=== PATIENT | male | born 1965 | race Caucasian/White ===

== ENCOUNTER 2016-10-30 21:17 | Emergency (ER) | payer OTHER ==
[~2016-10-30 21:17] MED LIST: ECO81 PO; FOL1 PO; PRI20 PO; THI100 PO; ZOC10 PO
[2016-10-30 22:37] VITALS: BP 108/77
== END 2016-10-30 22:37 | disposition home or self-care (01) ==
LOC: ED 21:17
DX: F10.129 Alcohol abuse with intoxication, unspecified (principal)

== ENCOUNTER 2016-11-01 22:55 | Inpatient (IN) | payer OTHER ==
[~2016-11-01] VITALS: Ht 167.6 cm; Wt 66.4 kg
[2016-11-01 23:26] LABS: BASOPHIL % 0.3 % (0-2); RED CELL DISTRIBUTION WIDTH 14.4 % (11.5-14.5)
[2016-11-01 23:35] LABS: CALCIUM 7.5 mg/dL (8.5-10.1); CARBON DIOXIDE 30.4 mmol/L (21-32); CHLORIDE SERUM 107 mmol/L (98-107); CREATININE SERUM 0.9 mg/dL (0.7-1.3); GFR1 > 60 mL/min; GLUCOSE SERUM 121 mg/dL (74-106); PLATELET COUNT 120 x10^3mcL (130-400); POTASSIUM SERUM 3.4 mmol/L (3.5-5.1); SODIUM SERUM 145 mmol/L (136-145)
[2016-11-01 23:40] LABS: ALKALINE PHOSPHATASE 120 U/L (46-116); ALT/SGPT 48 U/L (16-63); AMYLASE 37 U/L (25-115); AST/SGOT 48 U/L (15-37); BILIRUBIN TOTAL 0.2 mg/dL (0.20-1.00); LIPASE 480 IU/L (73-393)
[2016-11-01 23:41] LABS: ALBUMIN 3.2 g/dL (3.4-5.0); TOTAL PROTEIN, SERUM 6.1 g/dL (6.4-8.2)
[2016-11-02] VITALS (7 sets, daily range): BP systolic 100–121; BP diastolic 56–72
[2016-11-02 01:14] LABS: T3 TOTAL 1.07 ng/mL
[2016-11-02 01:35] LABS: PHOSPHOROUS 3.6 mg/dL (2.5-4.9)
[2016-11-02 01:36] LABS: CHOLESTEROL/HDL RATIO 1.6; FREE T4 0.93 ng/dL (0.76-1.46); FREE THYROXINE INDEX 2.1 ug/dL (1.4-4.5); T4(THYROXINE) 6.2 ug/dL (4.7-13.3)
[2016-11-02 06:31] LABS: microscopic required? NO
[2016-11-02 07:10] LABS: UA SPECIFIC GRAVITY 1.015 (1.005-1.035); urine erythrocyte NEGATIVE (NEGATIVE)
[2016-11-02 07:19] LABS: AMPHETAMINE QUAL UR NONE DETECTED (NEG <=1000)
[2016-11-03 05:55] VITALS: BP 108/66
[2016-11-03 06:18] LABS: CARBON DIOXIDE 27.5 mmol/L (21-32); CHLORIDE SERUM 103 mmol/L (98-107); CREATININE SERUM 0.8 mg/dL (0.7-1.3); GFR1 > 60 mL/min; GLUCOSE SERUM 86 mg/dL (74-106); MAGNESIUM 1.8 mg/dL (1.8-2.4); SODIUM SERUM 137 mmol/L (136-145)
[2016-11-03 07:13] LABS: BASOPHIL % 0.4 % (0-2); RED CELL DISTRIBUTION WIDTH 14.4 % (11.5-14.5)
[2016-11-03 07:14] LABS: PLATELET COUNT 93 x10^3mcL (130-400)
[2016-11-03 10:23] VITALS: BP 118/68
[2016-11-03] MEDS ORDERED: FOL1 PO (14:14)
[2016-11-03] MEDS ORDERED: THI100 PO (14:14)
[2016-11-03] MEDS ORDERED: ATI1 PO (14:19)
[2016-11-03 14:30] VITALS: BP 118/68
[2016-11-03 14:37] VITALS: BP 148/87
== END 2016-11-03 14:41 | disposition home or self-care (01) | DRG 282 ==
LOC: ED 22:55 → DU 23:57
PROVIDERS: Emergency Medicine; ADMIT Family Medicine
DX: K85.20 Alcohol induced acute pancreatitis without necrosis or infection (principal); G92 Toxic encephalopathy; E44.1 Mild protein-calorie malnutrition; E83.51 Hypocalcemia; F10.229 Alcohol dependence with intoxication, unspecified; E87.6 Hypokalemia; D64.9 Anemia, unspecified; F99 Mental disorder, not otherwise specified; J98.11 Atelectasis; Z79.82 Long term (current) use of aspirin
CPT/HCPCS: 83880; 84439; 94150; G0480; J0780; J2060; J2405; J7030; Q0092

== ENCOUNTER 2017-03-01 15:16 | Emergency (ER) | payer OTHER ==
[~2017-03-01 15:16] MED LIST changes: +ATI1 PO
[2017-03-01 15:29] VITALS: BP 136/78
== END 2017-03-01 16:14 | disposition left against medical advice (07) ==
LOC: ED 15:16
DX: Z53.21 Procedure and treatment not carried out due to patient leaving prior to being seen by health care provider (principal)

== ENCOUNTER 2017-05-28 07:55 | Emergency (ER) | payer OTHER ==
[~2017-05-28] VITALS: Ht 170.2 cm; Wt 68.0 kg
[2017-05-28 08:00] VITALS: Ht 170.2 cm; Wt 68.0 kg
[2017-05-28 14:07] VITALS: BP 135/62
== END 2017-05-28 14:07 | disposition home or self-care (01) ==
LOC: ED 07:55
DX: F10.129 Alcohol abuse with intoxication, unspecified (principal)

== ENCOUNTER 2018-01-03 16:43 | Emergency (ER) | payer SELFPAY ==
[~2018-01-03] VITALS: Ht 170.2 cm; Wt 71.2 kg
[2018-01-03 16:50] VITALS: Ht 170.2 cm; Wt 71.2 kg
[2018-01-03 18:07] LABS: BASOPHIL % 0.6 % (0-2)
[2018-01-03 18:10] LABS: PLATELET COUNT 128 x10^3mcL (130-400)
[2018-01-03 18:13] LABS: CALCIUM 8.1 mg/dL (8.5-10.1); CARBON DIOXIDE 26.2 mmol/L (21-32); CHLORIDE SERUM 105 mmol/L (98-107); CREATININE SERUM 0.8 mg/dL (0.7-1.3); GFR1 > 60 mL/min; GLUCOSE SERUM 114 mg/dL (74-106); POTASSIUM SERUM 3.6 mmol/L (3.5-5.1); SODIUM SERUM 138 mmol/L (136-145)
[2018-01-03 19:43] LABS: AMPHETAMINE QUAL UR POSITIVE (See below)
[2018-01-04 01:05] VITALS: BP 115/51
== END 2018-01-04 01:05 | disposition home or self-care (01) ==
LOC: ED 16:43
PROVIDERS: Emergency Medicine
DX: R51 Headache (principal); F15.10 Other stimulant abuse, uncomplicated; F10.10 Alcohol abuse, uncomplicated
CPT/HCPCS: G0480; J2060; J2550; J7030

== ENCOUNTER 2018-01-12 23:00 | Emergency (ER) | payer SELFPAY ==
[~2018-01-12] VITALS: Ht 170.2 cm; Wt 65.3 kg
[2018-01-12 23:04] VITALS: Ht 170.2 cm; Wt 65.3 kg
[2018-01-12 23:32] VITALS: BP 99/71
== END 2018-01-12 23:32 | disposition home or self-care (01) ==
LOC: ED 23:00
DX: F10.950 Alcohol use, unspecified with alcohol-induced psychotic disorder with delusions (principal); F41.9 Anxiety disorder, unspecified

== ENCOUNTER 2018-04-18 20:14 | Emergency (ER) | payer MEDICAID ==
[~2018-04-18] VITALS: Ht 170.2 cm; Wt 68.0 kg
[2018-04-18 20:21] VITALS: Ht 170.2 cm; Wt 68.0 kg
[2018-04-18 22:24] LABS: BASOPHIL % 0.4 % (0-2); PLATELET COUNT 170 x10^3mcL (130-400); RED CELL DISTRIBUTION WIDTH 13.9 % (11.5-14.5)
[2018-04-18 22:37] LABS: CALCIUM 8.4 mg/dL (8.5-10.1); CHLORIDE SERUM 103 mmol/L (98-107); GFR1 > 60 mL/min; GLUCOSE SERUM 95 mg/dL (74-106); POTASSIUM SERUM 3.8 mmol/L (3.5-5.1); SODIUM SERUM 141 mmol/L (136-145)
[2018-04-18 22:48] LABS: ALBUMIN 3.7 g/dL (3.4-5.0); ALKALINE PHOSPHATASE 76 U/L (46-116); ALT/SGPT 40 U/L (16-63); AST/SGOT 28 U/L (15-37); BILIRUBIN TOTAL 0.2 mg/dL (0.20-1.00); TOTAL PROTEIN, SERUM 7.1 g/dL (6.4-8.2)
[2018-04-18 23:49] LABS: AMPHETAMINE QUAL UR NONE DETECTED (See below)
[2018-04-19 05:27] VITALS: BP 132/75
== END 2018-04-19 05:27 | disposition home or self-care (01) ==
LOC: ED 20:14
PROVIDERS: Emergency Medicine
DX: S62.306A Unspecified fracture of fifth metacarpal bone, right hand, initial encounter for closed fracture (principal); F10.129 Alcohol abuse with intoxication, unspecified; F41.9 Anxiety disorder, unspecified; F32.9 Major depressive disorder, single episode, unspecified; Z59.0 Homelessness; W19.XXXA Unspecified fall, initial encounter; Y93.89 Activity, other specified; Y92.89 Other specified places as the place of occurrence of the external cause; Y99.8 Other external cause status
CPT/HCPCS: G0480; J2060; J7030; Q0092; Q0162

== ENCOUNTER 2018-04-26 07:13 | Emergency (ER) | payer MEDICAID ==
[~2018-04-26] VITALS: Ht 170.2 cm; Wt 66.2 kg
[~2018-04-26 07:13] MED LIST changes: +ATIVAN1 MG PO; +LIB25 PO; +LORAZEPAM0.5 MG; +NATURE'S BLEND F1 MG PO; +SEROQUEL25 MG
[2018-04-26 07:24] VITALS: Ht 170.2 cm; Wt 66.2 kg
[2018-04-26 08:28] LABS: BASOPHIL % 1.5 % (0-2); RED CELL DISTRIBUTION WIDTH 14.2 % (11.5-14.5)
[2018-04-26 08:34] LABS: PLATELET COUNT 103 x10^3mcL (130-400)
[2018-04-26 08:46] LABS: CALCIUM 8.2 mg/dL (8.5-10.1); CARBON DIOXIDE 28.6 mmol/L (21-32); CHLORIDE SERUM 100 mmol/L (98-107); CREATININE SERUM 0.9 mg/dL (0.7-1.3); GFR1 > 60 mL/min; GLUCOSE SERUM 93 mg/dL (74-106); POTASSIUM SERUM 3.7 mmol/L (3.5-5.1); SODIUM SERUM 139 mmol/L (136-145)
[2018-04-26 08:50] LABS: ALBUMIN 3.8 g/dL (3.4-5.0); ALKALINE PHOSPHATASE 94 U/L (46-116); ALT/SGPT 47 U/L (16-63); AST/SGOT 48 U/L (15-37); BILIRUBIN TOTAL 0.54 mg/dL (0.20-1.00); LIPASE 249 IU/L (73-393); TOTAL PROTEIN, SERUM 7.1 g/dL (6.4-8.2)
[2018-04-26 11:37] VITALS: BP 130/65
== END 2018-04-26 11:37 | disposition home or self-care (01) ==
LOC: ED 07:13
PROVIDERS: Emergency Medicine
DX: F10.239 Alcohol dependence with withdrawal, unspecified (principal); S62.306D Unspecified fracture of fifth metacarpal bone, right hand, subsequent encounter for fracture with routine healing; F15.10 Other stimulant abuse, uncomplicated; F12.10 Cannabis abuse, uncomplicated; X58.XXXD Exposure to other specified factors, subsequent encounter
CPT/HCPCS: J1885; J2060; J7030

== ENCOUNTER 2018-04-30 19:13 | Emergency (ER) | payer OTHER | END 2018-04-30 20:37 | disposition other institution (70) | LOC: ED 19:13 | DX: Z02.89 Encounter for other administrative examinations (principal) ==

== ENCOUNTER 2018-04-30 19:13 | Emergency (ER) | payer MEDICAID ==
[~2018-04-30] VITALS: Ht 170.2 cm; Wt 65.8 kg
[2018-04-30 19:33] VITALS: Ht 170.2 cm; Wt 65.8 kg
[2018-04-30 20:37] VITALS: BP 120/39
== END 2018-04-30 20:37 | disposition other institution (70) ==
LOC: ED 19:13
DX: S00.03XA Contusion of scalp, initial encounter (principal); S09.8XXA Other specified injuries of head, initial encounter; F20.9 Schizophrenia, unspecified; F41.9 Anxiety disorder, unspecified; F32.9 Major depressive disorder, single episode, unspecified; Y08.89XA Assault by other specified means, initial encounter; Y93.89 Activity, other specified; Y92.89 Other specified places as the place of occurrence of the external cause; Y99.8 Other external cause status

== ENCOUNTER 2018-05-08 23:42 | Emergency (ER) | payer OTHER ==
[2018-05-09 01:30] LABS: BASOPHIL % 0.4 % (0-2); PLATELET COUNT 143 x10^3mcL (130-400)
[2018-05-09 01:31] LABS: RED CELL DISTRIBUTION WIDTH 15.7 % (11.5-14.5)
[2018-05-09 01:43] LABS: CALCIUM 8.4 mg/dL (8.5-10.1); CARBON DIOXIDE 27.8 mmol/L (21-32); CHLORIDE SERUM 102 mmol/L (98-107); GFR1 > 60 mL/min; GLUCOSE SERUM 103 mg/dL (74-106); POTASSIUM SERUM 3.7 mmol/L (3.5-5.1); SODIUM SERUM 141 mmol/L (136-145)
[2018-05-09 01:49] LABS: ALBUMIN 3.9 g/dL (3.4-5.0); ALKALINE PHOSPHATASE 107 U/L (46-116); ALT/SGPT 69 U/L (16-63); AST/SGOT 82 U/L (15-37); BILIRUBIN TOTAL 0.34 mg/dL (0.20-1.00); LIPASE 356 IU/L (73-393); TOTAL PROTEIN, SERUM 7.2 g/dL (6.4-8.2)
[2018-05-09 06:40] VITALS: BP 117/63
== END 2018-05-09 06:49 | disposition home or self-care (01) ==
LOC: ED 23:42
PROVIDERS: Emergency Medicine
DX: K29.70 Gastritis, unspecified, without bleeding (principal); F10.129 Alcohol abuse with intoxication, unspecified; F41.9 Anxiety disorder, unspecified; F32.9 Major depressive disorder, single episode, unspecified
CPT/HCPCS: G0480; J2405; J7030

== ENCOUNTER 2018-06-03 12:02 | Emergency (ER) | payer OTHER | END 2018-06-03 17:00 | disposition other institution (70) | LOC: ED 14:00 | DX: Z02.89 Encounter for other administrative examinations (principal) ==

== ENCOUNTER 2018-06-03 12:02 | Emergency (ER) | payer OTHER ==
[~2018-06-03] VITALS: Ht 170.2 cm; Wt 74.8 kg
[2018-06-03 12:10] VITALS: Ht 170.2 cm; Wt 74.8 kg
[2018-06-03 12:47] LABS: CALCIUM 8.3 mg/dL (8.5-10.1); CHLORIDE SERUM 97 mmol/L (98-107); CREATININE SERUM 1.3 mg/dL (0.7-1.3); GFR1 > 60 mL/min; GLUCOSE SERUM 90 mg/dL (74-106); POTASSIUM SERUM 3.7 mmol/L (3.5-5.1); SODIUM SERUM 135 mmol/L (136-145)
[2018-06-03 12:52] LABS: ALBUMIN 3.6 g/dL (3.4-5.0); ALKALINE PHOSPHATASE 75 U/L (46-116); ALT/SGPT 50 U/L (16-63); AST/SGOT 69 U/L (15-37); BILIRUBIN TOTAL 0.91 mg/dL (0.20-1.00); TOTAL PROTEIN, SERUM 6.5 g/dL (6.4-8.2)
[2018-06-03 13:16] LABS: BASOPHIL % 0.3 % (0-2)
[2018-06-03 13:18] LABS: PLATELET COUNT 110 x10^3mcL (130-400)
[2018-06-03 13:34] LABS: AMPHETAMINE QUAL UR POSITIVE (See below)
[2018-06-03 17:00] VITALS: BP 117/83
== END 2018-06-03 17:00 | disposition other institution (70) ==
LOC: ED 12:02
PROVIDERS: Emergency Medicine
DX: G92 Toxic encephalopathy (principal); F10.129 Alcohol abuse with intoxication, unspecified
CPT/HCPCS: 36415; G0480; J1630; J7030

== ENCOUNTER 2018-11-13 06:21 | Emergency (ER) | payer OTHER | END 2018-11-13 06:41 | disposition left against medical advice (07) | LOC: ED 06:21 | DX: Z53.21 Procedure and treatment not carried out due to patient leaving prior to being seen by health care provider (principal) ==

== ENCOUNTER 2018-12-09 09:51 | Emergency (ER) | payer OTHER ==
[~2018-12-09] VITALS: Ht 170.2 cm; Wt 62.6 kg
[2018-12-09 10:07] VITALS: Ht 170.2 cm; Wt 62.6 kg
[2018-12-09 12:36] VITALS: BP 117/84
== END 2018-12-09 12:36 | disposition home or self-care (01) ==
LOC: ED 09:51
DX: F10.239 Alcohol dependence with withdrawal, unspecified (principal); G89.29 Other chronic pain; M25.572 Pain in left ankle and joints of left foot; M79.89 Other specified soft tissue disorders; I10 Essential (primary) hypertension; F32.9 Major depressive disorder, single episode, unspecified; Z59.0 Homelessness; Y90.0 Blood alcohol level of less than 20 mg/100 ml
CPT/HCPCS: Q0092

== ENCOUNTER 2018-12-11 01:42 | Emergency (ER) | payer OTHER ==
[~2018-12-11] VITALS: Ht 172.7 cm; Wt 70.8 kg
[2018-12-11 01:49] VITALS: Ht 172.7 cm; Wt 70.8 kg
[2018-12-11 03:17] LABS: CALCIUM 8.5 mg/dL (8.5-10.1); CARBON DIOXIDE 26.9 mmol/L (21-32); CHLORIDE SERUM 110 mmol/L (98-107); GFR1 > 60 mL/min; GLUCOSE SERUM 108 mg/dL (74-106); POTASSIUM SERUM 4.4 mmol/L (3.5-5.1); SODIUM SERUM 147 mmol/L (136-145)
[2018-12-11 03:26] LABS: BASOPHIL % 0.1 % (0-2); RED CELL DISTRIBUTION WIDTH 14.1 % (11.5-14.5)
[2018-12-11 03:30] LABS: PLATELET COUNT 122 x10^3mcL (130-400)
--- NOTE | 2018-12-11 11:36 | NUR ---
Michael called [facility] and spoke to Yessy in the ER in regards to transferring this patient for care. Vee requesting for doc to doc, call was transferred to ER. Malka Diop, ACSW Ext [phone]
[2018-12-11 12:56] VITALS: BP 96/78
== END 2018-12-11 12:56 | disposition short-term general hospital (02) ==
LOC: ED 01:42
PROVIDERS: Emergency Medicine
DX: S02.609A Fracture of mandible, unspecified, initial encounter for closed fracture (principal); I10 Essential (primary) hypertension; F20.9 Schizophrenia, unspecified; F41.9 Anxiety disorder, unspecified; F32.9 Major depressive disorder, single episode, unspecified; Z72.89 Other problems related to lifestyle; Y04.8XXA Assault by other bodily force, initial encounter; Y93.89 Activity, other specified; Y92.89 Other specified places as the place of occurrence of the external cause; Y99.8 Other external cause status
CPT/HCPCS: G0480; J2270; J2405; J2543

== ENCOUNTER 2019-03-25 02:04 | Emergency (ER) | payer MEDICAID ==
[~2019-03-25] VITALS: Ht 167.6 cm; Wt 73.0 kg
[2019-03-25 02:09] VITALS: Ht 167.6 cm; Wt 73.0 kg
[2019-03-25 02:45] LABS: BASOPHIL % 0.3 % (0-2); PLATELET COUNT 97 x10^3mcL (130-400); RED CELL DISTRIBUTION WIDTH 13.1 % (11.5-14.5)
[2019-03-25 03:01] LABS: ALBUMIN 3.4 g/dL (3.4-5.0); ALKALINE PHOSPHATASE 126 U/L (46-116); ALT/SGPT 39 U/L (16-63); AST/SGOT 38 U/L (15-37); BILIRUBIN TOTAL 0.2 mg/dL (0.20-1.00); CALCIUM 7.9 mg/dL (8.5-10.1); CARBON DIOXIDE 27.3 mmol/L (21-32); CHLORIDE SERUM 106 mmol/L (98-107); CREATININE SERUM 0.9 mg/dL (0.7-1.3); GFR1 > 60 mL/min; GLUCOSE SERUM 105 mg/dL (74-106); LIPASE 328 IU/L (73-393); POTASSIUM SERUM 3.8 mmol/L (3.5-5.1); SODIUM SERUM 144 mmol/L (136-145); TOTAL PROTEIN, SERUM 6.7 g/dL (6.4-8.2)
[2019-03-25 09:07] VITALS: BP 110/74
== END 2019-03-25 09:07 | disposition home or self-care (01) ==
LOC: ED 02:04
PROVIDERS: Emergency Medicine
DX: F10.129 Alcohol abuse with intoxication, unspecified (principal); I10 Essential (primary) hypertension; F41.9 Anxiety disorder, unspecified; F32.9 Major depressive disorder, single episode, unspecified; Y90.8 Blood alcohol level of 240 mg/100 ml or more
CPT/HCPCS: G0480; J2405; J3411; J3475; J3490; J7030; Q0162